=== PATIENT | male | born 1995 | race Two or more races ===

== ENCOUNTER 2023-12-25 21:57 | Emergency (ER) | payer OTHER ==
[~2023-12-25] VITALS: Ht 175.3 cm; Wt 63.5 kg
[2023-12-25] MEDS ORDERED: LORazepam 1 MG TABLET PO ONE (22:30)
[2023-12-25] MEDS ORDERED: LORazepam 2 MG/ML VIAL IM ONE (22:30)
== END 2023-12-25 23:55 | disposition home or self-care (01) ==
LOC: ER 21:58
DX: F41.8 Other specified anxiety disorders (principal); R07.9 Chest pain, unspecified